=== PATIENT | female | born 1980 | race Caucasian/White ===

== ENCOUNTER 2021-08-07 17:03 | Emergency (ER) | payer BC ==
[2021-08-07 18:10] LABS: #Basophils 0.1 10x3/uL (0.0-0.2); #Neutrophils 15.4 10x3/uL (1.5-8.4); %Basophils 0.3 % (0.0-2.0); %Eosinophils 0.2 % (0.0-6.0); %Lymphocytes 8.3 % (18.0-47.0); %Monocytes 5.3 % (0.0-10.0); %Neutrophils 85.2 % (40.0-75.0); Hemoglobin 11.9 g/dL (12.0-15.5); Mean Platelet Volume 9.2 fl (7.4-10.4); Platelet Count 340 10x3/uL (150-450); RBC Distribution Width 12.5 % (11.5-14.5); White Blood Cell (WBC) Count 18.1 10x3/uL (3.5-10.5)
[2021-08-07 18:23] LABS: ALT (SGPT) 10 U/L (8-55); AST (SGOT) 10 U/L (5-34); Albumin 3.9 g/dL (3.5-5.0); Alkaline Phosphatase 88 U/L (40-110); Anion Gap 14 mmol/L (10-20); BUN (Urea Nitrogen) 10 mg/dL (7.0-18.7); Bilirubin, Total 0.6 mg/dL (0.2-1.2); Calc. Creatinine Clearance 0 mL/min (70-130); Calcium 9.2 mg/dL (7.8-10.44); Carbon Dioxide 25 mmol/L (22-29); Chloride 99 mmol/L (98-107); Globulin 3.1 g/dL (2.4-3.5); Glucose 116 mg/dL (70-105); Potassium 3.8 mmol/L (3.5-5.1); Sodium 134 mmol/L (136-145)
[2021-08-07 18:50] LABS: SARS-CoV-2 NAA Rapid Test Not Detected (NotDetected)
[2021-08-07] MEDS ORDERED: Azithromycin 250 MG TAB ONE (19:20)
[2021-08-07] MEDS ORDERED: cefTRIAXone\\ROCEPHIN 1 GM VIAL ONE (19:21)
== END 2021-08-07 20:37 | disposition home or self-care (01) ==
LOC: CSHERS 17:03 → EDSEX 17:03 → CSHERS 20:37
DX: J18.9 Pneumonia, unspecified organism (principal); Z20.822 Contact with and (suspected) exposure to COVID-19
CPT/HCPCS: 71045; 80053; 83880; 84484; 85025; 93005; J0696; U0002

== ENCOUNTER 2021-08-08 22:05 | Emergency (ER) | payer BC ==
[2021-08-08] MEDS ORDERED: Morphine 4 MG/ML VIAL ONE (22:55)
[2021-08-08 23:05] LABS: Hemoglobin 11.6 g/dL (12.0-15.5); Mean Corpuscular HGB CONC 34.2 g/dL (32.0-36.0); Mean Corpuscular Hemoglobin 29.4 pg (27.0-33.0); Mean Platelet Volume 9.1 fl (7.4-10.4); Platelet Count 366 10x3/uL (150-450); RBC Distribution Width 12.8 % (11.5-14.5); Red Blood Cell (RBC) Count 3.94 10x6/uL (3.90-5.03); White Blood Cell (WBC) Count 15.4 10x3/uL (3.5-10.5)
[2021-08-08 23:10] LABS: BHCG - Serum Negative (NEGATIVE); Pregs Control Background? CLEAR/WHITE (CLR/WHITE); Pregs Control Bar Appear? YES (CONTROL BAR)
[2021-08-08 23:17] LABS: ALT (SGPT) 7 U/L (8-55); AST (SGOT) 9 U/L (5-34); Albumin 3.5 g/dL (3.5-5.0); Alkaline Phosphatase 93 U/L (40-110); Anion Gap 13 mmol/L (10-20); BUN (Urea Nitrogen) 8 mg/dL (7.0-18.7); Bilirubin, Total 0.4 mg/dL (0.2-1.2); Calc. Creatinine Clearance 0 mL/min (70-130); Calcium 8.8 mg/dL (7.8-10.44); Carbon Dioxide 26 mmol/L (22-29); Chloride 101 mmol/L (98-107); Globulin 2.9 g/dL (2.4-3.5); Glucose 128 mg/dL (70-105); Protein, Total 6.4 g/dL (6.0-8.3); Sodium 136 mmol/L (136-145)
[2021-08-08 23:22] LABS: MDiff Complete? YES
[2021-08-08 23:26] LABS: Band 13 % (5-11); Eosinophils 2 % (0-10); Lymphocytes 9 % (21-51); Monocytes 4 % (0-10); Neutrophil 71 % (42-75); Reactive Lymphocytes 1 % (0-10)
[2021-08-08 23:27] LABS: Platelet Morphology Comment Appears Adequate
[2021-08-08 23:28] LABS: RBC Morphology Normal
[2021-08-09] MEDS ORDERED: Morphine 4 MG/ML VIAL ONE (01:09)
[2021-08-09] MEDS ORDERED: Ketorolac Tromethamine 30 MG/ML VIAL ONE (01:09)
== END 2021-08-09 01:15 | disposition home or self-care (01) ==
LOC: CSHERS 22:05
DX: J18.9 Pneumonia, unspecified organism (principal)
CPT/HCPCS: 71275; 80053; 84484; 84703; 85025; 93005; 96374; 96375; 96376; J1885; J2270

== ENCOUNTER 2022-11-10 17:45 | Inpatient (IN) | payer BC ==
[~2022-11-10 17:45] MED LIST: Bupivacaine 0.25% HCL 30 ML VIAL ONE
[2022-11-10 18:11] VITALS: BMI 26.3
[2022-11-10] MEDS ORDERED: Carboprost 250 MCG/ML AMP IM PRN (18:18)
[2022-11-10] MEDS ORDERED: Misoprostol 200 MCG TAB PR PRN (18:18)
[2022-11-10] MEDS ORDERED: Fentanyl 100 MCG/2 ML VIAL SLOW IVP PRN (18:18)
[2022-11-10] MEDS ORDERED: Ibuprofen 800 MG TAB PO PRN (18:18)
[2022-11-10] MEDS ORDERED: Docusate 100 MG CAP PO PRN (18:18)
[2022-11-10] MEDS ORDERED: Diphenoxylate HCl/Atropine Tablet PO PRN ×2 (18:18)
[2022-11-10] MEDS ORDERED: Methylergonovine 0.2 MG/ML VIAL IM PRN (18:18)
[2022-11-10] MEDS ORDERED: Tranexamic Acid 1,000 MG in Sodium Chloride 0.9% 250 ML 250 ML IVPB PRN (18:18)
[2022-11-10] MEDS ORDERED: Lidocaine 1% (PF) 30 ML VIAL SC PRN (18:18)
[2022-11-10] MEDS ORDERED: Ondansetron PF 4 MG/2 ML Vial IVP PRN ×2 (18:18→20:51)
[2022-11-10] MEDS ORDERED: Acetaminophen 500 MG TAB PO PRN (18:18)
[2022-11-10] MEDS ORDERED: Butorphanol Tartrate 1 MG/ML VIAL SLOW IVP PRN (18:18)
[2022-11-10] MEDS ORDERED: Promethazine HCl 25 MG/ML VIAL IM PRN ×2 (18:18→20:51)
[2022-11-10] MEDS ORDERED: hydrALAZINE 20 MG/ML VIAL SLOW IVP PRN ×2 (18:18→21:04)
[2022-11-10] MEDS ORDERED: NS w/ Oxytocin 30 units 500 ML IV SCH ×2 (18:30)
[2022-11-10] MEDS ORDERED: Fentanyl 2 mcg/Bup 0.1% Cadd 100 ML ONE (19:13)
[2022-11-10 19:47] LABS: Hemoglobin 11.8 g/dL (12.0-15.5); Mean Corpuscular HGB CONC 33.6 g/dL (32.0-36.0); Mean Corpuscular Hemoglobin 30.6 pg (27.0-33.0); Mean Corpuscular Volume 91.2 fl (81.6-98.3); Mean Platelet Volume 11.2 fl (7.4-10.4); Platelet Count 206 10x3/uL (150-450); RBC Distribution Width 13.3 % (11.5-14.5); Red Blood Cell (RBC) Count 3.85 10x6/uL (3.90-5.03); White Blood Cell (WBC) Count 9.5 10x3/uL (3.5-10.5)
[2022-11-10] MEDS ORDERED: diphenhydrAMINE 50 MG/ML VIAL IVP PRN (20:51)
[2022-11-10] MEDS ORDERED: Moisturizing Cream (Eucerin) 113 GM JAR TOP PRN (20:51)
[2022-11-10] MEDS ORDERED: Acetaminophen 325 MG TAB PO PRN (20:51)
[2022-11-10] MEDS ORDERED: ePHEDrine Sulfate 50 MG/10 ML VIAL SLOW IVP PRN (20:51)
[2022-11-10] MEDS ORDERED: Naloxone HCl 0.4 mg/ml Vial IVP PRN ×2 (20:51)
[2022-11-10] MEDS ORDERED: Lactated Ringer's 500 ML IV PRN (20:51)
[2022-11-10] MEDS ORDERED: Communication Order-Pharmacy FS SCH (21:00)
[2022-11-10] MEDS ORDERED: Fentanyl 2 mcg/Bupivacaine 0.1% Cassette 100 ML EPIDURAL SCH (21:00)
[2022-11-10] MEDS ORDERED: Boostrix 0.5 ML (Tdap) VIAL (>/=7 yrs of age) IM ONE (21:04)
[2022-11-10] MEDS ORDERED: Bisacodyl 10 MG SUPP PR PRN (21:04)
[2022-11-10] MEDS ORDERED: Milk Of Magnesia 30 ML UDCUP PO PRN (21:04)
[2022-11-10 21:57] LABS: HBSAg Index 0.13 S/CO (0-0.99); Hep B Surf Ag - L&D Non-Reactive S/CO (NonReactive)
[2022-11-10 21:59] LABS: Syphilis Antibody Nonreactive (Nonreactive); Syphilis Antibody Index 0.03 S/CO (<1.00 Non-Reactive)
[2022-11-10 23:30] LABS: SARS-CoV-2 NAA Rapid Test Not Detected (NotDetected)
[2022-11-10] MEDS: Ibuprofen 800 MG TAB PO SCH (23:47)
[2022-11-11 02:23] LABS: #Monocytes 0.9 10x3/uL (0.0-1.1); #Neutrophils 14.6 10x3/uL (1.5-8.4); %Basophils 0.2 % (0.0-2.0); %Eosinophils 0.1 % (0.0-6.0); %Lymphocytes 9.5 % (18.0-47.0); %Monocytes 5.3 % (0.0-10.0); %Neutrophils 84.6 % (40.0-75.0); Hemoglobin 11.4 g/dL (12.0-15.5); Mean Corpuscular Hemoglobin 31.2 pg (27.0-33.0); Mean Corpuscular Volume 91.8 fl (81.6-98.3); Mean Platelet Volume 11.3 fl (7.4-10.4); Platelet Count 211 10x3/uL (150-450); RBC Distribution Width 13.3 % (11.5-14.5); Red Blood Cell (RBC) Count 3.65 10x6/uL (3.90-5.03); White Blood Cell (WBC) Count 17.2 10x3/uL (3.5-10.5)
[2022-11-11] MEDS: Misoprostol 100 MCG TAB VAG SCH (02:31)
[2022-11-11] MEDS: Lactated Ringer's 1,000 ML IV SCH (02:31)
[2022-11-11] MEDS: Ibuprofen 800 MG TAB PO SCH ×3 (06:20→21:15)
[2022-11-11] MEDS: Docusate 100 MG CAP PO SCH ×2 (08:15→22:54)
[2022-11-11] MEDS: Ferrous Sulfate 325 MG TAB PO SCH ×2 (08:16→16:59)
[2022-11-11] MEDS ORDERED: Prenatal Vitamin 1 TAB PO SCH (09:00)
[2022-11-11 22:28] VITALS: BP 112/64; TEMP 98.3
== END 2022-11-11 22:50 | disposition home or self-care (01) | DRG 807 ==
LOC: CSHLD/OP 17:45 → CSHLD 18:24 → CSHPP 11-11 01:50
PROVIDERS: ADMIT Obstetrics & Gynecology; ATTEND Student in an Organized Health Care Education/Training Program
PROC: 10E0XZZ Delivery of Products of Conception, External Approach (ICD-10-PCS; principal; 2022-11-10)
DX: O48.0 Post-term pregnancy (principal); Z37.0 Single live birth; Z3A.40 40 weeks gestation of pregnancy; Z20.822 Contact with and (suspected) exposure to COVID-19; Z88.0 Allergy status to penicillin
CPT/HCPCS: 36415; 85027; 86780; 86850; 86900; 86901; 87340; 99285; S0020; U0002

== ENCOUNTER 2022-12-24 08:19 | Emergency (ER) | payer BC ==
[2022-12-24 09:16] LABS: #Basophils 0.1 10x3/uL (0.0-0.2); #Eosinphils 0.2 10x3/uL (0.0-0.5); #Monocytes 0.7 10x3/uL (0.0-1.1); #Neutrophils 6.7 10x3/uL (1.5-8.4); %Basophils 0.5 % (0.0-2.0); %Eosinophils 1.6 % (0.0-6.0); %Lymphocytes 19.6 % (18.0-47.0); %Neutrophils 71.1 % (40.0-75.0); Hemoglobin 11.8 g/dL (12.0-15.5); Mean Corpuscular HGB CONC 33.1 g/dL (32.0-36.0); Mean Corpuscular Hemoglobin 29.9 pg (27.0-33.0); Mean Corpuscular Volume 90.4 fl (81.6-98.3); Mean Platelet Volume 8.7 fl (7.4-10.4); Platelet Count 288 10x3/uL (150-450); RBC Distribution Width 12.2 % (11.5-14.5); Red Blood Cell (RBC) Count 3.94 10x6/uL (3.90-5.03); White Blood Cell (WBC) Count 9.5 10x3/uL (3.5-10.5)
[2022-12-24] MEDS ORDERED: Iopamidol 300 61% 100 ML VIAL FS ONE (09:29)
[2022-12-24 09:44] LABS: Anion Gap 13 mmol/L (10-20); BUN (Urea Nitrogen) 9 mg/dL (7.0-18.7); Calc. Creatinine Clearance 0 mL/min (70-130); Carbon Dioxide 27 mmol/L (22-29); Chloride 107 mmol/L (98-107); Estimated GFR 109; Glucose 85 mg/dL (70-105); Potassium 4.3 mmol/L (3.5-5.1); Sodium 143 mmol/L (136-145)
[2022-12-24] MEDS ORDERED: cefTRIAXone (ROCEPHIN) 1 GM VIAL ONE (11:51)
[2022-12-24] MEDS ORDERED: Sodium Chloride 0.9% 10 ML ONE (11:51)
== END 2022-12-24 12:25 | disposition home or self-care (01) ==
LOC: CSHERS 08:19
DX: J18.9 Pneumonia, unspecified organism (principal)
CPT/HCPCS: 36415; 71046; 71260; 80048; 85025; 93005; 96374; J0696; Q9967

== ENCOUNTER 2024-09-13 12:10 | Outpatient (CLI) | payer BC | END 2024-09-13 12:11 | disposition home or self-care (01) | LOC: CSHLAB 12:10 | PROVIDERS: ATTEND Physician Assistant | DX: R07.9 Chest pain, unspecified (principal); Z78.9 Other specified health status | CPT/HCPCS: 36415; 85379 ==

== ENCOUNTER 2024-09-13 12:31 | Outpatient (CLI) | payer BC | END 2024-09-13 12:32 | disposition home or self-care (01) | LOC: CSHRAD 12:31 | PROVIDERS: ATTEND Physician Assistant | DX: R07.9 Chest pain, unspecified (principal); Z78.9 Other specified health status | CPT/HCPCS: 36415; 71046; 85379 ==